=== PATIENT | male | born 1970 | race Caucasian/White ===

== ENCOUNTER 2019-08-24 17:21 | Outpatient (CLI) | payer SELFPAY ==
[2019-08-24 18:38] LABS: Alanine Aminotransferase 99 U/L (0-41); Albumin Level 4.9 g/dL (3.5-5.2); Alkaline Phosphatase 94 IU/L (40-130); Anion Gap 18.3 (5-19); Aspartate Amino Transferase 49 U/L (0-40); Blood Urea Nitrogen 13 mg/dL (6-20); Calcium 10.2 mg/dL (8.5-10.5); Carbon Dioxide 23 mmol/L (22-29); Chloride 104 mmol/L (98-107); Chol HDL Ratio 4.95 mg/dL (1.0-5.00); Cholesterol 183 mg/dL (0-200); Globulin 2.3 g/dL (1.3-4.6); Glomerular Filtration Rate 71.4 mL/min (90-130); Glucose 73 mg/dL (65-115); HDL Cholesterol 37 mg/dL (60-100); LDL Cholesterol Calculated 128 mg/dL (50-129); LDL HDL Ratio 3.46 RATIO (0.00-3.22); Osmolality Calculated 287 mOsm/kg (285-295); Potassium 4.3 mmol/L (3.5-5.1); Sodium 141 mmol/L (136-145); Total Bilirubin 1.2 mg/dL (0.15-1.2); Total Protein 7.2 g/dL (6.6-8.7); Triglycerides 89 mg/dL (0-150)
== END 2019-08-24 17:22 | disposition home or self-care (01) ==
LOC: LAB 17:22
PROVIDERS: Visit Provider General Practice
DX: E78.5 Hyperlipidemia, unspecified (principal)
CPT/HCPCS: 80053; 80061

== ENCOUNTER 2019-09-12 17:34 | Emergency (ER) | payer SELFPAY ==
[2019-09-12 17:44] VITALS: BP 128/81; PULSE 84; RESP 14; TEMP 37.2; O2SAT 97; BMI 27.8
--- NOTE | 2019-09-12 19:32 | W.ED.HEATRA ---
HPI - Head Injury General: Chief complaint: Head Injury Stated complaint: head injury Time Seen by Provider: 09/12/19 19:24 Source: patient Mode of arrival: ambulatory Limitations: no limitations History of Present Illness: HPI Narrative: 49-year-old male states he was using a pry bar to try to pry stump out and it slipped and struck him on the crown of the head. He has a 2 cm laceration to the head. He denies any loss of consciousness and has a very mild headache. He states his headache is a 2 out of 10. He denies any neck pain. He has had no nausea or vomiting. His tetanus has been within the last 5 years. MD Complaint: head injury Onset (ago): hour(s) Associated symptoms: Deny nausea, neck pain or vomiting Review of Systems Const: Denies: fever(s), chills, body aches or change in appetite Eyes: Denies: blurry vision or eye discomfort ENMT: Denies: throat pain or dental pain Card: Denies: chest pain Resp: Denies: dyspnea GI: Denies: abdominal pain, nausea, vomiting or diarrhea : Denies: dysuria Musc: Denies: neck pain or back pain Skin/Breast: Denies: rash Neuro: Denies: headache(s) Psych: Denies: depression Octavio/Lymph: Denies: easy bruising All/Imm: Denies: urticaria Physical Exam Const: COMMON NORMALS: no acute distress, patient oriented x3 and healthy appearing HENMT: COMMON NORMALS: normocephalic HEAD & SCALP: normocephalic OTHER: 2 cm laceration to scalp and head Eye: COMMON NORMALS: Equal, round and reactive pupils present and EOMs intact bilaterally PUPIL: Yes Equal, round and reactive pupils present Neck/C-Spine: COMMON NORMALS: full ROM and supple Chest: COMMONS NORMALS: normal inspection of the chest and normal palpation of entire chest wall Resp: COMMON NORMALS: normal respiratory effort, No retractions, No use of accessory muscles and clear to auscultation bilaterally AUSCULTATION: clear to auscultation bilaterally Cardio: COMMON NORMALS: regular rate, regular rhythm and No murmurs present (Cardio) RATE: regular rate RHYTHM: regular rhythm GI: COMMON NORMALS: Normal to inspection, nondistended, normoactive bowel sounds present, Soft to palpation, non-tender and no masses PALPATION: Yes Soft to palpation Extremity: COMMON NORMALS: normal to inspection and full ROM Neuro: COMMON NORMALS: patient oriented x3, moves all extremities and no focal motor deficits Psych: COMMON NORMALS: mental status grossly normal, Normal thought process present and cooperative THOUGHT PROCESS: Normal thought process present Skin: COMMON NORMALS: no rashes or lesions noted and no wounds GENERAL SKIN EXAM: no rashes or lesions noted Procedures Laceration Laceration 1: Site: scalp Size (cm): 2 Description: linear Depth: simple, single layer Local Anesthetic: lidocaine 1% Amount of anesthesia used (mL): 6 Pre-repair: wound explored and irrigated extensively Skin layer closed with: other (3 jagruti) Course Vital Signs: Vital signs: Vital Signs Temperature 99.0 F 09/12/19 17:44 Pulse Rate 84 09/12/19 17:44 Respiratory Rate 14 09/12/19 17:44 Blood Pressure 128/81 09/12/19 17:44 Pulse Oximetry 97 09/12/19 17:44 MDM - Head Injury MDM Narrative: Medical decision making narrative: Patient presents with a head laceration that was repaired here with jagruti. He has no signs of major injury and does not require CT head. Patient given strict return instructions and he is to follow-up with PCP or here in 7 days for staple removal. Discharge Plan Discharge Patient Disposition: Home, Self-Care Clinical Impression: Laceration of head Qualifiers: Encounter type: initial encounter Location of open wound of head: scalp Foreign body presence: without foreign body Qualified Code(s): S01.01XA - Laceration without foreign body of scalp, initial encounter Condition: Stable Prescriptions: No Action simvastatin 20 mg Tablet 20 mg PO DAILY RF: 0 ProAir HFA 90 mcg/actuation Hfa Aerosol Inhaler 2 puff INHALATION Q6H PRN (Reason: Shortness Of Breath) RF: 0 naproxen 500 mg Tablet 500 mg PO BID PRN (Reason: Pain) RF: 0 Symbicort 80-4.5 mcg/actuation Hfa Aerosol Inhaler 2 puff INHALATION BID RF: 0 Discharge Orders: Discharge Order (Routine); Ordered 09/12/19 Ordered By: Jeanine Garsia Discharge Diet: Advance as tolerated Discharge Activity: Resume usual activity Patient Instructions: Scalp Laceration, Laceration (ED) Activity Restrictions/Additional Instructions: staple removal in 7 days Coding Level of Care Code ED Crm Marketing Executive for Jake Kenny
[2019-09-12 19:36] VITALS: BP 149/100; PULSE 74; RESP 16; O2SAT 100
--- NOTE | 2019-09-19 13:00 | PC.NURSE ---
HERE FOR STAPLE REMOVAL LAC TOP OF HEAD WELL HEALED NO SIGNS OF INFECTION 3 RAINE INTACT PER KIET LILLY MAY GO AHEAD AND TAKE RAINE OUT. RAINE X 3 REMOVED PT IRA WELL
== END 2019-09-12 19:37 | disposition home or self-care (01) ==
PROVIDERS: Emergency Provider Emergency Medicine
DX: S01.01XA Laceration without foreign body of scalp, initial encounter (principal); W20.8XXA Other cause of strike by thrown, projected or falling object, initial encounter
CPT/HCPCS: 12001; 12345; 99281

== ENCOUNTER 2020-01-16 13:02 | Emergency (ER) | payer SELFPAY ==
[2020-01-16 13:13] VITALS: BP 135/98; PULSE 93; RESP 18; TEMP 36.6; O2SAT 97
--- NOTE | 2020-01-16 13:15 | XR_ITS ---
WS: [id number] Portable AP upright chest, 01/16/2020 Clinical Data: cp Comparison: PA and lateral chest, 01/04/2014. Findings: No nodules, masses or effusions are seen. The heart is normal. The pulmonary vascularity is not increased. No pneumonia or pneumothorax is seen. XR/XR chest 1V portable [id number] Impression: Negative chest.
--- NOTE | 2020-01-16 13:15 | ECG_ITS ---
[facility] Test Date: 2020-01-16 Pat Name: Fran Caal Department: Room: Gender: Male Director Drug: : 1970 Requested By: Jeanine Garsia Order Number: [id number] Reid MD: En Ch M.D. Measurements Intervals [place] Rate: 92 P: 38 VT: 148 QRS: 50 QRSD: 92 T: 39 QT: 328 QTc: 406 Interpretive Statements SINUS RHYTHM No previous ECG available for comparison Electronically Signed On 01-16-2020 20:19:09 ASSEMBLY TECHNICIAN by En Ch M.D. [id number]
[2020-01-16 13:20] VITALS: BMI 29.0
[2020-01-16 14:00] LABS: Basophils # 0.1 10^3/uL (0.0-0.1); Basophils % 0.8 %; Eosinophils # 0.2 10^3/uL (0.0-0.8); Eosinophils % 2.2 %; Hematocrit 49.7 % (42.0-52.0); Hemoglobin 16.9 g/dL (11.7-16.6); Lymphocytes # 2.1 10^3/uL (0.8-4.8); Lymphocytes % 23.7 %; Mean Corpuscular Volume 88.1 fL (80-94); Mean Platelet Volume 9.8 fL (7.4-10.4); Monocytes # 0.8 10^3/uL (0.2-0.9); Monocytes % 8.5 %; Neutrophils # 5.68 10^3/uL (1.8-7.7); Neutrophils % 64.2 %; Nucleated Red Blood Cells % 0 %; Platelet Count 280 10^3/cmm (130-400); Red Blood Count 5.64 10^6/uL (4.1-5.3); Red Cell Distribution Width 12.4 % (12.1-15.1); White Blood Count 8.8 10^3/uL (4.0-10.0)
[2020-01-16 14:56] LABS: Troponin(5th) Baseline 6 ng/L (0-15)
[2020-01-16 14:58] LABS: Alanine Aminotransferase 83 U/L (0-41); Albumin Level 4.4 g/dL (3.5-5.2); Alkaline Phosphatase 99 IU/L (40-130); Aspartate Amino Transferase 33 U/L (0-40); Blood Urea Nitrogen 11 mg/dL (6-20); Calcium 9.7 mg/dL (8.5-10.5); Carbon Dioxide 27 mmol/L (22-29); Chloride 101 mmol/L (98-107); Globulin 2.5 g/dL (1.3-4.6); Glomerular Filtration Rate 71.4 mL/min (90-130); Glucose 98 mg/dL (65-115); Osmolality Calculated 283 mOsm/kg (285-295); Sodium 137 mmol/L (136-145); Total Protein 6.9 g/dL (6.6-8.7)
[2020-01-16 14:59] LABS: Anion Gap 13.3 (5-19); Potassium 4.3 mmol/L (3.5-5.1)
--- NOTE | 2020-01-16 15:15 | ECG_ITS ---
[facility] Test Date: 2020-01-16 Pat Name: Fran Caal Department: Room: Gender: Male Property Man: : 1970 Requested By: Jeanine Garsia Order Number: [id number] Reid MD: En Ch M.D. Measurements Intervals [place] Rate: 81 P: 139 SD: 155 QRS: 131 QRSD: 87 T: 136 QT: 356 QTc: 415 Interpretive Statements SINUS RHYTHM ARM LEADS REVERSED [INVERTED P AND QRS IN I] Compared to ECG 01/16/2020 13:17:38 No significant changes Electronically Signed On 01-16-2020 20:24:22 WHITE WASHER PILER by En Ch M.D. [email or web address] [email or web address] health [facility] hospital northM [id number]
--- NOTE | 2020-01-16 15:40 | ED_ITS ---
HPI - Chest Pain General: Chief Complaint: Chest Pain Stated Complaint: chest feeling like palpitations/ chest pressure Time Seen by Provider: 01/16/20 15:27 History of Present Illness: HPI narrative: 49-year-old male presents emergency room with complaints of chest pain off and on for the last 4 months. He is concerned that he may have pneumonia again he has a history of asthma. He has an occasional nonproductive cough. Chest pain is somewhat reproducible with heavy lifting and. He notes that when he uses power tools he gets worse he gets a vibratory sensation in his chest. This has been going on for several months now. No accompanying dyspnea or diaphoresis. MD complaint: chest discomfort Timing of current episode: episodic Pain location: left chest Pain radiation: none Severity: mild Quality: aching and heaviness Relieving factors: nothing Exacerbating factors: other (Use of power tools) Associated symptoms: Deny abdominal pain, diaphoresis, dyspnea, fever(s), leg edema, nausea, palpitations, sense of impending doom, syncope or vomiting Treatment prior to arrival: none Review of Systems Const: Denies: fever(s) or diaphoresis ENMT: Denies: throat pain, ear or mastoid pain, nasal discharge or nasal congestion Card: Denies: palpitations or syncope Resp: Denies: dyspnea GI: Denies: abdominal pain, nausea or vomiting : Denies: flank pain, dysuria, urinary frequency or urinary urgency Skin/Breast: Denies: rash or pruritus Physical Exam Const: COMMON NORMALS: no acute distress GENERAL APPEARANCE: cooperative and comfortable ORIENTATION/CONSCIOUSNESS: Yes awake, Yes oriented to person, Yes oriented to place and Yes oriented to time HENMT: COMMON NORMALS: normocephalic, atraumatic and hearing grossly normal bilaterally HEAD & SCALP: normocephalic and atraumatic Eye: COMMON NORMALS: Equal, round and reactive pupils present, EOMs intact bilaterally, conjunctivae normal and no scleral icterus CONJUNCTIVA: Yes conjunctivae normal PUPIL: Yes Equal, round and reactive pupils present Neck/C-Spine: COMMON NORMALS: full ROM, no lymphadenopathy, supple and no JVD Resp: COMMON NORMALS: normal respiratory effort, No retractions, No use of accessory muscles and clear to auscultation bilaterally AUSCULTATION: clear to auscultation bilaterally Cardio: COMMON NORMALS: no JVD, regular rate, regular rhythm and No murmurs present (Cardio) RATE: regular rate RHYTHM: regular rhythm GI: COMMON NORMALS: Soft to palpation and No hepatosplenomegaly present AUSCULTATION: Yes normoactive bowel sounds PALPATION: Yes Soft to palpation, No Tenderness to palpation present (GI), No Guarding due to palpation present (GI) and Yes No hepatosplenomegaly present Extremity: COMMON NORMALS: normal to inspection, capillary refill normal, no clubbing, cyanosis or edema, no calf tenderness and no pedal edema Neuro: SENSORIUM/ORIENTATION: Yes oriented to person, Yes oriented to place and Yes oriented to time Skin: COMMON NORMALS: no rashes or lesions noted GENERAL SKIN EXAM: no rashes or lesions noted Course Vital Signs: Vital signs: Vital Signs Temperature 97.9 F 01/16/20 13:13 Pulse Rate 78 01/16/20 16:23 Respiratory Rate 14 01/16/20 16:23 Blood Pressure 140/75 01/16/20 16:23 Pulse Oximetry 99 01/16/20 16:23 MDM - Chest Pain Lab Data: Labs: Lab Results 01/16/20 01/16/20 01/16/20 Range/Units 13:40 13:40 13:40 WBC 8.8 (4.0-10.0) 10^3/ uL RBC 5.64 H (4.1-5.3) 10^6/u L Hgb 16.9 H (11.7-16.6) g/dL Hct 49.7 (42.0-52.0) % MCV 88.1 (80-94) fL MCH 30.0 (28.0-34.0) pg MCHC 34.0 (30.0-36.0) g/dL RDW 12.4 (12.1-15.1) % Plt Count 280 (130-400) 10^3/c mm MPV 9.8 (7.4-10.4) fL Neut % (Auto) 64.2 % Lymph % (Auto) 23.7 % [place] % (Auto) 8.5 % Eos % (Auto) 2.2 % Baso % (Auto) 0.8 % Neut # (Auto) 5.68 (1.8-7.7) 10^3/u L Lymph # (Auto) 2.1 (0.8-4.8) 10^3/u L [place] # (Auto) 0.8 (0.2-0.9) 10^3/u L Eos # (Auto) 0.2 (0.0-0.8) 10^3/u L Baso # (Auto) 0.1 (0.0-0.1) 10^3/u L Nucleated RBC % (a uto) 0 % Nucleated RBCs # 0.0 /100WBC Sodium 137 (136-145) mmol/L Potassium 4.3 (3.5-5.1) mmol/L Chloride 101 (98-107) mmol/L Carbon Dioxide 27 (22-29) mmol/L Anion Gap 13.3 (5-19) BUN 11 (6-20) mg/dL Creatinine 1.1 (0.7-1.2) mg/dL GFR Calculation 71.4 L (90-130) mL/min Glucose 98 (65-115) mg/dL Calculated Osmolal ity 283 L (285-295) mOsm/k g Calcium 9.7 (8.5-10.5) mg/dL Total Bilirubin 1.0 (0.15-1.2) mg/dL AST 33 (0-40) U/L ALT 83 H (0-41) U/L Alkaline Phosphata se 99 (40-130) IU/L Troponin T Baselin e 6 (0-15) ng/L Troponin T 120 Min [place] (0-15) ng/L Delta Troponin T (0-10) ABS# Total Protein 6.9 (6.6-8.7) g/dL Albumin 4.4 (3.5-5.2) g/dL Globulin 2.5 (1.3-4.6) g/dL 01/16/20 Range/Units 15:45 WBC (4.0-10.0) 10^3/ uL RBC (4.1-5.3) 10^6/u L Hgb (11.7-16.6) g/dL Hct (42.0-52.0) % MCV (80-94) fL MCH (28.0-34.0) pg MCHC (30.0-36.0) g/dL RDW (12.1-15.1) % Plt Count (130-400) 10^3/c mm MPV (7.4-10.4) fL Neut % (Auto) % Lymph % (Auto) % [place] % (Auto) % Eos % (Auto) % Baso % (Auto) % Neut # (Auto) (1.8-7.7) 10^3/u L Lymph # (Auto) (0.8-4.8) 10^3/u L [place] # (Auto) (0.2-0.9) 10^3/u L Eos # (Auto) (0.0-0.8) 10^3/u L Baso # (Auto) (0.0-0.1) 10^3/u L Nucleated RBC % (a uto) % Nucleated RBCs # /100WBC Sodium (136-145) mmol/L Potassium (3.5-5.1) mmol/L Chloride (98-107) mmol/L Carbon Dioxide (22-29) mmol/L Anion Gap (5-19) BUN (6-20) mg/dL Creatinine (0.7-1.2) mg/dL GFR Calculation (90-130) mL/min Glucose (65-115) mg/dL Calculated Osmolal ity (285-295) mOsm/k g Calcium (8.5-10.5) mg/dL Total Bilirubin (0.15-1.2) mg/dL AST (0-40) U/L ALT (0-41) U/L Alkaline Phosphata se (40-130) IU/L Troponin T Baselin e (0-15) ng/L Troponin T 120 Min [place] 6.00 (0-15) ng/L Delta Troponin T 0 (0-10) ABS# Total Protein (6.6-8.7) g/dL Albumin (3.5-5.2) g/dL Globulin (1.3-4.6) g/dL Discharge Plan Discharge Patient Disposition: Home Clinical Impression: Atypical chest pain Condition: Stable Prescriptions: New aspirin 81 mg tablet,chewable 81 mg PO DAILY Qty: 30 RF: 0 No Action simvastatin 20 mg Tablet 20 mg PO DAILY RF: 0 albuterol sulfate [ProAir HFA] 90 mcg/actuation Hfa Aerosol Inhaler 2 puff INHALATION Q4H PRN (Reason: Shortness Of Breath) RF: 0 naproxen 500 mg Tablet 500 mg PO BID PRN (Reason: Pain) RF: 0 budesonide-formoterol [Symbicort] 80-4.5 mcg/actuation Hfa Aerosol Inhaler 2 puff INHALATION BID RF: 0 cetirizine 10 mg Tablet 10 mg PO DAILY RF: 0 guaifenesin 400 mg Tablet 600 mg PO BID PRN (Reason: unknown) RF: 0 Saline [place] 1 spray nasal DAILY PRN (Reason: unknown) RF: 0 Discharge Orders: Discharge Order (Routine); Ordered 01/16/20 Ordered By: Rene Myrick Discharge Diet: Usual diet Discharge Activity: Increase activity as tolerated Activity Restrictions/Additional Instructions: Case management will call to arrange for a graded exercise stress test Discharge Date/Time: 01/16/20 16:24 Coding Level of Care Code ED Transaction Processor for Jake Kenny
[2020-01-16 16:14] LABS: Troponin 5 2HR Delta 0 ABS# (0-10)
[2020-01-16 16:23] VITALS: BP 140/75; PULSE 78; RESP 14; O2SAT 99
--- NOTE | 2020-01-17 11:32 | DCPLANNER ---
senior project manager engineering had message to schedule an out patient stress test for patient. senior project manager engineering called patient to confirm that patient still wanted to have the stress test ordered and to confirm who patient sees for primary care. senior project manager engineering spoke with patient, he stated that he goes the [facility], and that he does not want to have the test ordered at this time. senior project manager engineering will mail patient both of the financial institution manager applications to fill out and turn in.
== END 2020-01-16 16:24 | disposition home or self-care (01) ==
PROVIDERS: Emergency Medicine; Emergency Provider Family Medicine
DX: R07.89 Other chest pain (principal)
CPT/HCPCS: 12345; 71045; 80053; 84484; 85025; 93005; 99283

== ENCOUNTER 2020-11-07 18:50 | Outpatient (REF) | payer SELFPAY ==
[2020-11-07 20:06] LABS: Alanine Aminotransferase 74 U/L (0-41); Albumin Level 4.6 g/dL (3.5-5.2); Alkaline Phosphatase 111 IU/L (40-130); Aspartate Amino Transferase 38 U/L (0-40); Blood Urea Nitrogen 8 mg/dL (6-20); Calcium 9.5 mg/dL (8.5-10.5); Carbon Dioxide 24 mmol/L (22-29); Chloride 104 mmol/L (98-107); Globulin 3.2 g/dL (1.3-4.6); Glomerular Filtration Rate 79.4 mL/min (90-130); Glucose 100 mg/dL (65-115); Osmolality Calculated 288 mOsm/kg (285-295); Sodium 140 mmol/L (136-145); Total Bilirubin 1.3 mg/dL (0.15-1.2); Total Protein 7.8 g/dL (6.6-8.7)
== END 2020-11-07 18:51 | disposition home or self-care (01) ==
LOC: LAB 18:50
PROVIDERS: PCP General Practice; Visit Provider General Practice
DX: Z01.89 Encounter for other specified special examinations (principal)
CPT/HCPCS: 80053

== ENCOUNTER 2021-05-06 09:47 | Outpatient (CLI) | payer BC, MEDICAID, SELFPAY ==
--- NOTE | 2021-05-06 09:54 | US_ITS ---
WS: [id number] RIGHT UPPER QUADRANT ULTRASOUND HISTORY: UNSPECIFIED JAUNDICE/SERUM TOTAL BILIRUBIN ELEVATED COMPARISON: CT 10/08/2012. Entire liver is difficult to visualize. Liver: 14.7 cm in length. Liver is normal size. There is a hypoechoic nodule towards the diaphragmati c surface measuring 1.7 x 1.7 x 1.9 cm. May have been present on the prior CT from 2012 but increased slightly in size. This is of low echogenicity may be a cyst or complex cyst. There is an additional hypoechoic area in the central liver measuring 1.8 x 2.0 x 1.8 cm was not definitely identified on a prior exam. No bile duct dilatation. Coarse echotexture throughout the liver. Portal Vein: Normal hepatopetal flow with monophasic waveform. Gallbladder: Normally distended gallbladder. Small stone adherent to the wall or a polyp within the g allbladder measuring about 10 mm. This does not move. No wall thickening. No pericholecystic fluid. CBD: 0.4 cm Pancreas: Poorly visualized. Head and tail are not seen. Right kidney: 9.2 cm in length. Normal size and echogenicity. No hydronephrosis or mass. Aorta and IVC: Unremarkable abdominal aorta and IVC. No ascites. US/US abdomen limited [id number] IMPRESSION: 1. Technically difficult and limited evaluation of the RIGHT upper quadrant. 2. There are 2 areas of decreased echogenicity within the liver which need fur ther evaluation. One of these areas may have been present in 2013 but increased in size. Recommend follow-up abdomen and pelvis CT with IV and oral contrast t o evaluate for additional lesions in the liver and characterize the 2 lesions a re identified. 3. No bile duct dilatation. 4. Poor visualization of the pancreas. 5. Small gallbladder polyp versus stone.
== END 2021-05-06 09:48 | disposition home or self-care (01) ==
LOC: RAD 09:52
PROVIDERS: PCP Nurse Practitioner Family; Visit Provider Nurse Practitioner Family
DX: R17 Unspecified jaundice (principal)
CPT/HCPCS: 76705

== ENCOUNTER 2021-05-29 13:55 | Outpatient (CLI) | payer BC, MEDICAID, SELFPAY ==
--- NOTE | 2021-05-29 14:00 | CTR_ITS ---
PROCEDURE INFORMATION: Exam: CT Abdomen With Contrast Exam date and time: 05/29/2021 3:12 PM Age: 51 years old Clinical indication: Abnormal findings; Abnormal radiologic finding of the abdomen; Radiologic exam and body structure: Abdominal US; Patient HX: Jaundice; Per PT spots on his liver; Additional info: Abnormal US TECHNIQUE: Imaging protocol: Computed tomography images of the abdomen with intravenous contrast. Radiation optimization: All CT scans at this facility use at least one of these dose optimization techniques: automated exposure control; mA and/or kV adjustment per patient size (includes targeted exams where dose is matched to clinical indication); or iterative reconstruction. Contrast material: OMNI 300; Contrast volume: 95 ml; Contrast route: INTRAVENOUS (IV); COMPARISON: US abdomen limited [id number] 05/06/2021 10:09 AM RADIATION DOSE METRICS: Total DLP (mGy-cm): 739.86 FINDINGS: Lungs: Left lower lobe atelectasis. Left lower lobe atelectasis. Liver: Hepatic steatosis suspected. Right hepatic lobe 16 mm probable cyst seen near the dome corresponding to 1 of the lesions seen on recent ultrasound. Additional hypoechoic area in the central liver as seen on recent ultrasound is not seen on this exam suggesting it may reflect an area of focal fatty sparing. Hepatic steatosis suspected. Gallbladder and bile ducts: Cholelithiasis suspected. Cholelithiasis suspected. Pancreas: Normal. No ductal dilation. Spleen: Normal. No splenomegaly. Adrenals: Normal. No mass. Kidneys and ureters: Right kidney cyst, negative for follow-up advised. Right kidney cyst, negative for follow-up advised. Stomach and bowel: Visualized stomach and bowel are unremarkable. No obstruction. No mucosal thickening. Intraperitoneal space: Unremarkable. No free air. No significant fluid collection. Lymph nodes: Unremarkable. No enlarged lymph nodes. Vasculature: Unremarkable. No abdominal aortic aneurysm. Bones/joints: Unremarkable. No acute fracture. No dislocation. Soft tissues: Unremarkable. CT/CT abdomen w con* [id number] IMPRESSION: 1. Left lower lobe atelectasis. 2. Hepatic steatosis suspected. 3. Right kidney cyst, negative for follow-up advised. 4. Cholelithiasis suspected. 5. Right hepatic lobe 16 mm probable cyst seen near the dome corresponding to 1 of the lesions seen on recent ultrasound. 6. Additional hypoechoic area in the central liver as seen on recent ultrasound is not seen on this exam suggesting it may reflect an area of focal fatty sparing. 7. Left lower lobe atelectasis. 8. Hepatic steatosis suspected. 9. Right kidney cyst, negative for follow-up advised. 10. Cholelithiasis suspected.
[2021-05-29] MEDS: iohexol 300 mg/mL 50 mL Btl PO (14:15)
[2021-05-29] MEDS: iohexol 300 mg/mL 100 mL Btl IV (15:15)
== END 2021-05-29 13:56 | disposition home or self-care (01) ==
PROVIDERS: PCP Nurse Practitioner Family; Visit Provider Nurse Practitioner Family
DX: J98.11 Atelectasis (principal); K76.0 Fatty (change of) liver, not elsewhere classified
CPT/HCPCS: 74160

== ENCOUNTER 2022-02-04 15:14 | Outpatient (CLI) | payer BC, MEDICAID, SELFPAY ==
--- NOTE | 2022-02-04 15:26 | XRR_ITS ---
PROCEDURE INFORMATION: Exam: XR Chest Exam date and time: 02/04/2022 3:26 PM Age: 52 years old Clinical indication: Cough TECHNIQUE: Imaging protocol: Radiologic exam of the chest. Views: 2 views. COMPARISON: CR XR chest 1V portable [id number] 01/16/2020 1:31 PM FINDINGS: Lungs: Unremarkable. No consolidation. Pleural spaces: Unremarkable. No pleural effusion. No pneumothorax. Heart/Mediastinum: Unremarkable. No cardiomegaly. Bones/joints: Unremarkable. XR/XR chest 2V* [id number] IMPRESSION: No acute findings.
== END 2022-02-04 15:15 | disposition home or self-care (01) ==
PROVIDERS: PCP Nurse Practitioner Family; Visit Provider Nurse Practitioner Family
DX: R05.9 Cough, unspecified (principal)
CPT/HCPCS: 71046

== ENCOUNTER 2022-09-23 12:03 | Outpatient (CLI) | payer BC, MEDICAID, SELFPAY ==
--- NOTE | 2022-09-23 12:20 | XRR_ITS ---
PROCEDURE INFORMATION: Exam: XR Cervical Spine Exam date and time: 09/23/2022 12:38 PM Age: 52 years old Clinical indication: Pain; Cervicalgia; Additional info: Cervicalgia/tension-type headache TECHNIQUE: Imaging protocol: Radiologic exam of the cervical spine. Views: 6 or more views. COMPARISON: CR XR chest 2V* [id number] 02/04/2022 3:26 PM FINDINGS: Bones/joints: Spinal alignment is normal. Vertebral body height is maintained. Cervical spine is visible through C6 on the lateral view. No spondylolisthesis on the neutral view. There is there is 2 mm anterolisthesis of C4 on C5 in flexion. This resolves with extension. Visible facet joints are unremarkable. No visible neural foraminal stenosis. No visible fracture. Soft tissues: Visible soft tissues are unremarkable. XR/XR cervical spine min 6V [id number] IMPRESSION: 2 mm anterolisthesis of C4 on C5 in flexion, resolves with extension.
== END 2022-09-23 12:04 | disposition home or self-care (01) ==
PROVIDERS: PCP Nurse Practitioner Family; Visit Provider Nurse Practitioner Family
DX: M54.2 Cervicalgia (principal); G44.209 Tension-type headache, unspecified, not intractable; R93.7 Abnormal findings on diagnostic imaging of other parts of musculoskeletal system
CPT/HCPCS: 72052

== ENCOUNTER 2022-11-12 13:09 | Outpatient (CLI) | payer BC, MEDICAID, SELFPAY ==
--- NOTE | 2022-11-12 13:21 | CT_ITS ---
WS: [id number] CT ABDOMEN WITH CONTRAST HISTORY: ELEVATED FT'S/UPPER ABD PAIN Contiguous single phase 5 mm axial imaging performed to the abdomen. Oral contrast has not been provi ded. Coronal and sagittal reformats are submitted. All CT scans at [facility] use at least on e of these dose optimization techniques: automated exposure control; mA and/or kV adjustment per triston ent size (includes targeted exams where dose is matched to clinical indication); or iterative reconst ruction. IV CONTRAST: Omnipaque 350; 100 mL IV. Oral contrast: No DLP: 401.30 mGy.cm COMPARISON: 05/29/2021 Lower thorax: Micronodule periphery RIGHT lower lobe. Heart is normal size. No hiatal hernia. Liver/biliary system: Normal size liver. Low-attenuation well-circumscribed mass toward the diaphragm atic surface measures 2.2 x 2.3 cm. Hounsfield units are low. This mass was identified on the prior s tudy from 05/29/2021 with mild increase in size. Most consistent with a mildly complex cyst. No additi onal masses. Normal portal vein. Gallbladder: Normal. No gallstones or wall thickening. No pericholec ystic fluid. Pancreas: Normal size pancreas and pancreatic duct. No adjacent inflammation. Spleen: Normal size spleen. No mass or infarct. Adrenal glands: Normal. Right kidney: No renal obstruction. Cortical cyst from the posterior lower pole measures 1.5 cm. No s olid mass. Left kidney: Mild atrophy LEFT kidney with cortical thinning and scarring. No mass or obstruction. No interval change. Aorta: Mild atherosclerosis aorta. Lymphadenopathy: None. Free fluid: None. GI tract: As visualized within the abdomen, normal. There is mild constipation. Abdominal wall: Unremarkable abdominal wall. No hernia. Visualized osseous structures: Unremarkable. IMPRESSION: 1. No acute abdominal process identified. 2. Mild increase in size of the hepatic cyst toward the diaphragmatic surface now measuring 2.2 x 2. 3 cm. 3. No bile duct dilatation. Negative gallbladder. 4. Mild atrophy and cortical thinning LEFT kidney. 5. RIGHT renal cyst.
[2022-11-12] MEDS: iohexol 350 mg/mL 500 mL Btl (per mL) IV (13:38)
== END 2022-11-12 13:10 | disposition home or self-care (01) ==
PROVIDERS: PCP Nurse Practitioner Family; Visit Provider Nurse Practitioner Family
DX: R79.89 Other specified abnormal findings of blood chemistry (principal); R10.10 Upper abdominal pain, unspecified; K80.20 Calculus of gallbladder without cholecystitis without obstruction; K76.0 Fatty (change of) liver, not elsewhere classified; K76.89 Other specified diseases of liver; N28.1 Cyst of kidney, acquired
CPT/HCPCS: 74160; Q9967

== ENCOUNTER 2022-12-09 12:49 | Outpatient (CLI) | payer BC, MEDICAID, SELFPAY ==
--- NOTE | 2022-12-09 12:56 | XR_ITS ---
WS: [id number] Left foot, 3 views, 12/09/2022 Clinical Data: PAIN OF LEFT GREAT TOE Comparison: None. Findings: No fractures or dislocations are seen. No bone destruction or erosion is noted. There is minimal soft tissue swelling over the head of the left first metatarsal with mild cystic change. There is also a small cyst at the medial aspect of the base of the left first proximal phalanx. There is an Achilles spur. 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
== END 2022-12-09 12:50 | disposition home or self-care (01) ==
PROVIDERS: PCP Nurse Practitioner Family; Visit Provider Nurse Practitioner Family
DX: M19.072 Primary osteoarthritis, left ankle and foot (principal)
CPT/HCPCS: 73630

== ENCOUNTER 2022-12-25 05:24 | Day surgery (SDC) | payer BC, MEDICAID, SELFPAY ==
[2022-12-25 06:13] VITALS: BP 146/116; PULSE 94; RESP 20; TEMP 36.4; O2SAT 96
[2022-12-25] MEDS: sodium chloride 0.9% 1,000 ML 30 ML IV (06:34)
--- NOTE | 2022-12-25 06:56 | P.HP_ITS ---
Providers/Chief Complaint Primary Care Provider: JOSETTE Newton Chief Complaint: Z12.11 History of Present Illness Fran Caal is a 52 year old male Review of Systems General: Reports: 10 or more systems reviewed and unremarkable except in HPI and below Medications/Allergies Home Medications Medication Instructions Recorded Confirmed Last Taken Type albuterol sulfate 90 mcg/actuation 2 puff inhalation Q4H PRN 09/12/19 12/25/22 12/25/22 History aerosol inhaler (ProAir HFA) Shortness Of Breath budesonide-formoterol HFA 80 2 puff inhalation BID 09/12/19 12/25/22 12/25/22 History mcg-4.5 mcg/actuation aerosol inhaler (Symbicort) cetirizine 10 mg tablet 10 mg PO DAILY 09/19/19 12/23/22 12/23/22 History Saline [place] 1 spray nasal DAILY PRN unknown 01/16/20 12/25/22 12/25/22 History aspirin 81 mg chewable tablet 81 mg PO DAILY #30 tabs 01/16/20 12/23/22 12/23/22 Rx carboxymethylcellulose sodium 1 % 1 drp ophthalmic (eye) BID 04/28/22 12/25/22 12/24/22 History eye gel in a dropperette (Refresh Celluvisc) fluticasone propionate 50 1 spray intranasal DAILY 04/28/22 12/23/22 12/24/22 History mcg/actuation nasal spray,suspension povidone (PF) 0.5 % eye gel in a 2 drp ophthalmic (eye) BID 04/28/22 12/25/22 12/24/22 History dropperette (iVizia (PF)) ropinirole 0.5 mg tablet 1 mg PO BID 04/28/22 12/25/22 12/23/22 History tizanidine 4 mg capsule 4 mg PO TID PRN Muscle Spasm 04/28/22 12/25/22 12/23/22 History omega-3 fatty acids 500 mg capsule 500 mg PO DAILY 11/24/22 12/23/22 12/23/22 History Allergies Allergy/AdvReac Type Severity Reaction Status Date / Time No Known Allergies Allergy Verified 12/23/22 09:24 PFSH Acute PFSH: Medical History Asthma COPD (chronic obstructive pulmonary disease) Emphysema lung Hx of hyperlipidemia Social History Smoking and tobacco/nicotine status: never used tobacco/nicotine Vitals/I&O/Wt Last Vital Signs Temp 97.6 F 12/25/22 06:13 Pulse 94 12/25/22 06:13 Resp 20 H 12/25/22 06:13 BP 146/116 12/25/22 06:13 Pulse Ox 96 12/25/22 06:13 O2 Del Method Room Air 12/25/22 06:13 Weight last 48 hrs Weight 190 lb A&P Assessment and plan (1) Colon cancer screening: Plan Colonoscopy Attestations Medical Necessity Statement*: home Coding Level of Care Code Acute Code for Chg Fwd Diagnoses Colon cancer screening Z12.11
--- NOTE | 2022-12-25 06:58 | ANES.PREANE2 ---
Pre-Anesthetic Assessment Height/Weight: Height 1.75 m Weight 86.183 kg Temp Pulse Resp BP Pulse Ox O2 Del Method 97.6 F 94 20 H 146/116 96 Room Air 12/25/22 06:13 12/25/22 06:13 12/25/22 06:13 12/25/22 06:13 12/25/22 06:13 12/25/22 06:13 Preop Diagnosis: Screening Operation Date: 12/25/22 07:00 Proposed Procedures p Colonoscopy 07107,Z12.11(Not Applicable) - Varghese Fuentes, DO Was Beta Mark taken within 24 hours: N/A Was Clonidine taken within 24 hours: N/A Last intake: Intake Last Liquid Date 12/24/22 Last Liquid Time 23:00 Last Solid Date 12/24/22 Last Solid Time 20:00 Social No alcohol and No tobacco Exam alert, oriented x 3, clear to auscultation bilaterally and regular rate & rhythm Airway Submandibular: within normal limits Cervical ROM: within normal limits Mallampati: Class II Dentition: full History/ROS No significant history except as noted and No significant complaints Pulmonary Asthma CV/HEM None reported None reported Hepatic None reported GI None reported Metabolic None reported Musc/skel None reported Neuropsych None reported Anesthetic Plan ASA status: 2 Anesthesia: Anesthesia Evaluation and MAC Risk of > 500 ml blood loss (7ml/kg in children): No Medications/Allergies Home Medications Medication Instructions Recorded Confirmed Last Taken Type albuterol sulfate 90 mcg/actuation 2 puff inhalation Q4H PRN 09/12/19 12/25/22 12/25/22 History aerosol inhaler (ProAir HFA) Shortness Of Breath budesonide-formoterol HFA 80 2 puff inhalation BID 09/12/19 12/25/22 12/25/22 History mcg-4.5 mcg/actuation aerosol inhaler (Symbicort) cetirizine 10 mg tablet 10 mg PO DAILY 09/19/19 12/23/22 12/23/22 History Saline [place] 1 spray nasal DAILY PRN unknown 01/16/20 12/25/22 12/25/22 History aspirin 81 mg chewable tablet 81 mg PO DAILY #30 tabs 01/16/20 12/23/22 12/23/22 Rx carboxymethylcellulose sodium 1 % 1 drp ophthalmic (eye) BID 04/28/22 12/25/22 12/24/22 History eye gel in a dropperette (Refresh Celluvisc) fluticasone propionate 50 1 spray intranasal DAILY 04/28/22 12/23/22 12/24/22 History mcg/actuation nasal spray,suspension povidone (PF) 0.5 % eye gel in a 2 drp ophthalmic (eye) BID 04/28/22 12/25/22 12/24/22 History dropperette (iVizia (PF)) ropinirole 0.5 mg tablet 1 mg PO BID 04/28/22 12/25/22 12/23/22 History tizanidine 4 mg capsule 4 mg PO TID PRN Muscle Spasm 04/28/22 12/25/22 12/23/22 History omega-3 fatty acids 500 mg capsule 500 mg PO DAILY 11/24/22 12/23/22 12/23/22 History Allergies Allergy/AdvReac Type Severity Reaction Status Date / Time No Known Allergies Allergy Verified 12/23/22 09:24 Current Medications Generic Name Dose Route Start Last Admin Trade Name Freq PRN Reason Stop Dose Admin Sodium Chloride 1,000 mls @ 30 mls/hr 12/25/22 06:00 12/25/22 06:34 Sodium Chloride 0.9% IV 12/26/22 05:59 30 mls/hr .Q24H SAGAR Administration PFSH Anesthesia Medical History Asthma COPD (chronic obstructive pulmonary disease) Emphysema lung Hx of hyperlipidemia Social History Smoking and tobacco/nicotine status: never used tobacco/nicotine Data Anesthesia Cardiac Studies: No Data to Display
[2022-12-25 07:20] VITALS: BP 138/92; PULSE 101; RESP 20; TEMP 36.3; O2SAT 97
[2022-12-25 07:30] VITALS: BP 153/96; PULSE 108; RESP 20; O2SAT 93
[2022-12-25 07:38] VITALS: BP 143/105; PULSE 104; RESP 18; O2SAT 100
--- NOTE | 2022-12-25 13:47 | ANE.PACU2 ---
Inpatient post-anesthesia follow up: Airway intact: Yes Vital signs: Temperature 97.3 F Pulse Rate 104 Respiratory Rate 18 Blood Pressure 143/105 Pulse Oximetry 100 Oxygen Delivery Me thod Room Air Oxygen Flow Rate 4 Fraction of Inspir ed Oxygen Hydration adequate: Yes Nausea and vomiting: No Pain level: 2 Mental status: Baseline
== END 2022-12-25 07:45 | disposition home or self-care (01) ==
PROVIDERS: PCP Nurse Practitioner Family; Visit Provider Surgery
PROC: 0DJD8ZZ Inspection of Lower Intestinal Tract, Via Natural or Artificial Opening Endoscopic (ICD-10-PCS; CPT 45378; principal; 2022-12-25 07:00)
DX: Z12.11 Encounter for screening for malignant neoplasm of colon (principal); Z79.82 Long term (current) use of aspirin; J44.9 Chronic obstructive pulmonary disease, unspecified; E78.5 Hyperlipidemia, unspecified
CPT/HCPCS: 45378; J2704; J7030

== ENCOUNTER 2023-01-26 11:09 | Outpatient (CLI) | payer BC, MEDICAID, SELFPAY ==
[2023-01-26 12:35] LABS: Alanine Aminotransferase 162 U/L (0-41); Albumin Level 4.2 g/dL (3.5-5.2); Alkaline Phosphatase 105 U/L (40-130); Anion Gap 12.1 (5-19); Aspartate Amino Transferase 66 U/L (0-40); Blood Urea Nitrogen 13 mg/dL (6-20); Calcium 9.7 mg/dL (8.5-10.5); Carbon Dioxide 29 mmol/L (22-29); Chloride 103 mmol/L (98-107); Globulin 2.9 g/dL (1.3-4.6); Glomerular Filtration Rate 70.3 mL/min (90-130); Glucose 111 mg/dL (65-115); Osmolality Calculated 291 mOsm/kg (285-295); Potassium 4.1 mmol/L (3.5-5.1); Sodium 140 mmol/L (136-145); Total Bilirubin 0.9 mg/dL (0.15-1.2); Total Protein 7.1 g/dL (6.6-8.7); Uric Acid 6.2 mg/dL (3.4-7.0)
== END 2023-01-26 11:10 | disposition home or self-care (01) ==
PROVIDERS: PCP Nurse Practitioner Family; Visit Provider Podiatrist Foot & Ankle Surgery
DX: M10.9 Gout, unspecified (principal)
CPT/HCPCS: 36415; 80053; 84550

== ENCOUNTER 2023-04-14 14:52 | Outpatient (CLI) | payer BC, MEDICAID, SELFPAY ==
--- NOTE | 2023-04-14 15:00 | MRR_ITS ---
PROCEDURE INFORMATION: Exam: MR Abdomen Without and With Contrast Exam date and time: 04/14/2023 4:09 PM Age: 53 years old Clinical indication: Patient HX: History of a cyst on the liver/no symptoms/follow-up scan per patient; Additional info: Liver cyst/elevated lfts TECHNIQUE: Imaging protocol: Magnetic resonance imaging of the abdomen without and with contrast. COMPARISON: CT abdomen w con* [id number] 11/12/2022 1:33 PM FINDINGS: Liver: No change in the circumscribed simple cyst in the posterosuperior margin of the right liver measuring 2.3 cm diameter. Negative for enhancement. Negative for hepatomegaly. Signal intensity of the liver parenchyma is unremarkable. Gallbladder and bile ducts: Unremarkable. No stones. No ductal dilation. Pancreas: Unremarkable. No ductal dilation. Spleen: Unremarkable. No splenomegaly. Adrenal glands: Unremarkable. No mass. Kidneys and ureters: Chronic atrophic changes of the left renal parenchyma. Small simple posterior lower pole right renal cyst redemonstrated. Negative for enhancement. Negative for hydronephrosis. Stomach and bowel: Visualized stomach and intestines are unremarkable. Intraperitoneal space: No free fluid. Vasculature: No abdominal aortic aneurysm. Hepatic vasculature is patent. Bones/joints: Unremarkable. Soft tissues: Unremarkable. MR/MR abdomen wo/w con* [id number] IMPRESSION: 1. Negative for biliary obstruction. 2. No change in the small simple liver cyst. No dedicated follow-up is recommended for this finding. 3. No change in the small simple right renal cyst. No dedicated follow-up for this finding is recommended.
[2023-04-14] MEDS: gadobenate dimeglumine 20 mL vial IV (16:47)
== END 2023-04-14 14:53 | disposition home or self-care (01) ==
LOC: RAD 14:52
PROVIDERS: PCP Nurse Practitioner Family; Visit Provider Nurse Practitioner
DX: K76.89 Other specified diseases of liver (principal); R79.89 Other specified abnormal findings of blood chemistry
CPT/HCPCS: 74183; A9577

== ENCOUNTER 2024-02-02 13:00 | Emergency (ER) | payer BC, MEDICAID, SELFPAY ==
--- NOTE | 2024-02-02 13:04 | XR_ITS ---
WS: [id number] Exam: XR chest 1V portable [id number] Date/Time of Exam: 02/02/2024 1:11 PM Reason For Exam: cp Comparison 02/04/2022. Lungs are fully inflated and clear. Normal cardiomediastinal silhouette. No pleural effusions. Region al bony elements are intact. XR/XR chest 1V portable [id number] IMPRESSION: 1. No acute finding.
--- NOTE | 2024-02-02 13:07 | ECG_ITS ---
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
[2024-02-02 13:09] VITALS: BP 126/85; PULSE 69; RESP 18; TEMP 36.8; O2SAT 98
[2024-02-02 14:00] LABS: Basophils % 0.6 %; Eosinophils # 0.2 10^3/uL (0.0-0.8); Eosinophils % 2.5 %; Hematocrit 51.5 % (37-53); Lymphocytes # 1.8 10^3/uL (0.8-4.8); Lymphocytes % 25.1 %; Mean Corpuscular HGB Conc 33.8 g/dL (30-55); Mean Corpuscular Hemoglobin 29.6 pg (27-33); Mean Corpuscular Volume 87.7 fl (82-101); Mean Platelet Volume 9.4 fL (7.4-10.4); Monocytes # 0.5 10^3/uL (0.2-0.9); Monocytes % 6.3 %; Neutrophils # 4.69 10^3/uL (1.8-7.7); Neutrophils % 65.1 %; Nucleated Red Blood Cells % 0 %; Platelet Count 295 10^3/cmm (157-399); Red Blood Count 5.87 10^6/uL (3.85-5.65); Red Cell Distribution Width 12.5 % (12.1-15.1)
[2024-02-02 14:18] LABS: Alanine Aminotransferase 116 U/L (0-41); Albumin Level 4.7 g/dL (3.5-5.2); Alkaline Phosphatase 114 U/L (40-130); Anion Gap 16.4 (5-19); Aspartate Amino Transferase 48 U/L (0-40); Blood Urea Nitrogen 15 mg/dL (6-20); Calcium 9.7 mg/dL (8.5-10.5); Carbon Dioxide 25 mmol/L (22-29); Chloride 103 mmol/L (98-107); Creatinine Clr Calc Pharmacy 76.5137; Globulin 2.4 g/dL (1.3-4.6); Glomerular Filtration Rate 63.3 mL/min (90-130); Glucose 89 mg/dL (65-115); Lipase 33 U/L (13-60); Osmolality Calculated 290 mOsm/kg (285-295); Potassium 4.4 mmol/L (3.5-5.1); Sodium 140 mmol/L (136-145); Total Bilirubin 1.2 mg/dL (0.15-1.2); Total Protein 7.1 g/dL (6.6-8.7)
[2024-02-02 14:19] LABS: Troponin(5th) Baseline < 6 ng/L (0-15)
--- NOTE | 2024-02-02 15:29 | ED_ITS ---
HPI - Chest Pain 2 General: Chief Complaint: Chest Pain Stated Complaint: chest tightness, cough Time Seen by Provider: 02/02/24 15:23 Source: patient Mode of arrival: ambulatory Limitations: no limitations History of Present Illness: 54-year-old male states he is having abbie st pain for the last month. He states been a very sharp pain worse when he coughs. States he has a history of COPD and has had a mild cough. He denies any fever he denies any shortness of breath denies any worsening improving factors. Denies any vomiting Associated symptoms: Deny abdominal pain, dyspnea, fever(s), nausea or vomiting Related Data Home Medications Medication Instructions Recorded Confirmed albuterol sulfate 90 mcg/actuation 2 puff inhalation Q4H PRN 09/12/19 04/12/23 aerosol inhaler (ProAir HFA) Shortness Of Breath budesonide-formoterol HFA 80 2 puff inhalation BID 09/12/19 04/12/23 mcg-4.5 mcg/actuation aerosol inhaler (Symbicort) cetirizine 10 mg tablet 10 mg PO DAILY 09/19/19 04/12/23 Saline [place] 1 spray nasal DAILY PRN unknown 01/16/20 04/12/23 carboxymethylcellulose sodium 1 % 1 drp ophthalmic (eye) BID 04/28/22 04/12/23 eye gel in a dropperette (Refresh Celluvisc) fluticasone propionate 50 1 spray intranasal DAILY 04/28/22 04/12/23 mcg/actuation nasal spray,suspension povidone (PF) 0.5 % eye gel in a 2 drp ophthalmic (eye) BID 04/28/22 04/12/23 dropperette (iVizia (PF)) ropinirole 0.5 mg tablet 1 mg PO BID 04/28/22 04/12/23 tizanidine 4 mg capsule 4 mg PO TID PRN Muscle Spasm 04/28/22 04/12/23 omega-3 fatty acids 500 mg capsule 500 mg PO DAILY 11/24/22 04/12/23 meloxicam 15 mg tablet ea PO 01/04/23 04/12/23 famotidine 20 mg tablet mg PO 04/12/23 04/12/23 Previous Rx's Medication Instructions Recorded aspirin 81 mg chewable tablet 81 mg PO DAILY #30 tabs 01/16/20 allopurinol 100 mg tablet 200 mg (2 x 100 mg) PO DAILY #60 04/12/23 tabs Allergies Allergy/AdvReac Type Severity Reaction Status Date / Time No Known Allergies Allergy Verified 04/12/23 10:55 Review of Systems 2 Const: Denies: fever(s), chills, body aches or change in appetite ENMT: Denies: throat pain or dental pain Card: Reports: chest pain Resp: Reports: non-productive cough; Denies: dyspnea GI: Denies: abdominal pain, nausea, vomiting or diarrhea Musc: Denies: neck pain or back pain Skin/Breast: Denies: rash Neuro: Denies: headache(s) PFSH ED 2 PFSH: Medical History Asthma COPD (chronic obstructive pulmonary disease) Emphysema lung Hx of hyperlipidemia Social History Smoking and tobacco/nicotine status: never used tobacco/nicotine Physical Exam 2 Const: COMMON NORMALS: no acute distress, patient oriented x3 and healthy appearing HENMT: COMMON NORMALS: normocephalic and atraumatic HEAD & SCALP: n ormocephalic and atraumatic Eye: COMMON NORMALS: conjunctivae normal CONJUNCTIVA: Yes conjunctivae normal Neck/C-Spine: COMMON NORMALS: full ROM and supple Chest: COMMONS NORMALS: normal inspection of the chest and normal palpation of entire chest wall Resp: COMMON NORMALS: normal respiratory effort, No retractions, No use of accessory muscles and clear to auscultation bilaterally AUSCULTATION: clear to auscultation bilaterally Cardio: COMMON NORMALS: regular rate, regular rhythm and No murmurs present (Cardio) RATE: regular rate RHYTHM: regular rhythm Extremity: COMMON NORMALS: normal to inspection and full ROM Neuro: COMMON NORMALS: patient oriented x3, moves all extremities and no focal motor deficits Psych: COMMON NORMALS: mental status grossly normal, Normal thought process present and cooperative THOUGHT PROCESS: Normal thought process present Skin: COMMON NORMALS: no rashes or lesions noted and no wounds GENERAL SKIN EXAM: no rashes or lesions noted Course 2 Vital Signs: Vital signs: Vital Signs Temperature 98.3 F 02/02/24 13:09 Pulse Rate 69 02/02/24 13:09 Respiratory Rate 18 02/02/24 13:09 Blood Pressure 126/85 02/02/24 13:09 Pulse Oximetry 98 02/02/24 13:09 MDM - Chest Pain Medical Decision Making Patient presents for chest pain is very atypical in nature is likely pleuritic he has no signs of ACS he has no signs of pulmonary embolism or dissection we will give him a dose of Decadron he stable for discharge follow-up with PCP return if worsening. Medical Records I reviewed the patient's medical records. Lab Data I reviewed the patient's lab results. 02/02/24 13:54 02/02/24 13:54 Radiology Impressions Chest X-Ray 02/02/24 13:04 IMPRESSION: 1. No acute finding. Laboratory Results WBC 7.20 10^3/uL (3.29-11.43) 02/02/24 13:54 RBC 5.87 10^6/uL (3.85-5.65) H 02/02/24 13:54 Hgb 17.40 g/dL (11.27-16.99) H 02/02/24 13:54 Hct 51.5 % (37-53) 02/02/24 13:54 MCV 87.7 fl (82-101) 02/02/24 13:54 MCH 29.6 pg (27-33) 02/02/24 13:54 MCHC 33.8 g/dL (30-55) 02/02/24 13:54 RDW 12.5 % (12.1-15.1) 02/02/24 13:54 Plt Count 295 10^3/cmm (157-399) 02/02/24 13:54 MPV 9.4 fL (7.4-10.4) 02/02/24 13:54 Neut % (Auto) 65.1 % 02/02/24 13:54 Lymph % (Auto) 25.1 % 02/02/24 13:54 [place] % (Auto) 6.3 % 02/02/24 13:54 Eos % (Auto) 2.5 % 02/02/24 13:54 Baso % (Auto) 0.6 % 02/02/24 13:54 Neut # (Auto) 4.69 10^3/uL (1.8-7.7) 02/02/24 13:54 Lymph # (Auto) 1.8 10^3/uL (0.8-4.8) 02/02/24 13:54 [place] # (Auto) 0.5 10^3/uL (0.2-0.9) 02/02/24 13:54 Eos # (Auto) 0.2 10^3/uL (0.0-0.8) 02/02/24 13:54 Baso # (Auto) 0.0 10^3/uL (0.0-0.1) 02/02/24 13:54 Nucleated RBC % (auto) 0 % 02/02/24 13:54 Nucleated RBCs # 0.0 /100WBC 02/02/24 13:54 Sodium 140 mmol/L (136-145) 02/02/24 13:54 Potassium 4.4 mmol/L (3.5-5.1) 02/02/24 13:54 Chloride 103 mmol/L (98-107) 02/02/24 13:54 Carbon Dioxide 25 mmol/L (22-29) 02/02/24 13:54 Anion Gap 16.4 (5-19) 02/02/24 13:54 BUN 15 mg/dL (6-20) 02/02/24 13:54 Creatinine 1.2 mg/dL (0.7-1.2) 02/02/24 13:54 GFR Calculation 63.3 mL/min (90-130) L 02/02/24 13:54 Glucose 89 mg/dL (65-115) 02/02/24 13:54 Calculated Osmolality 290 mOsm/kg (285-295) 02/02/24 13:54 Calcium 9.7 mg/dL (8.5-10.5) 02/02/24 13:54 Total Bilirubin 1.2 mg/dL (0.15-1.2) 02/02/24 13:54 AST 48 U/L (0-40) H 02/02/24 13:54 ALT 116 U/L (0-41) H 02/02/24 13:54 Alkaline Phosphatase 114 U/L (40-130) 02/02/24 13:54 Troponin T Baseline < 6 ng/L (0-15) 02/02/24 13:54 Total Protein 7.1 g/dL (6.6-8.7) 02/02/24 13:54 Albumin 4.7 g/dL (3.5-5.2) 02/02/24 13:54 Globulin 2.4 g/dL (1.3-4.6) 02/02/24 13:54 Lipase 33 U/L (13-60) 02/02/24 13:54 All radiology interpretation(s) finalized by discharge Clincial Decision Support The following clinical decision support tools were used to aid in care of the patient HEART Score -> History: Slightly Suspicous, EKG: Normal, Age: 45-64 yrs, Risk Factors: 1 or 2 Risk Factors, Troponin: Baseline Trop <16 ng/L. Resulting HEART Score: 2. Discharge Plan Discharge Patient Disposition: Home Clinical Impression: Chest pain Condition: Stable Prescriptions: No Action ropinirole 0.5 mg tablet 1 mg PO BID tizanidine 4 mg capsule 4 mg PO TID PRN (Reason: Muscle Spasm) fluticasone propionate 50 mcg/actuation spray,suspension 1 spray intranasal DAILY Rx Instructions: administer into each nostril iVizia (PF) 0.5 % dropperette,gel 2 drp ophthalmic (eye) BID carboxymethylcellulose sodium [Refresh Celluvisc] 1 % dropperette,gel 1 drp ophthalmic (eye) BID omega-3 fatty acids 500 mg capsule 500 mg PO DAILY meloxicam 15 mg tablet PO famotidine 20 mg tablet PO allopurinol 100 mg tablet 200 mg PO DAILY Qty: 60 4RF albuterol sulfate [ProAir HFA] 90 mcg/actuation Hfa Aerosol Inhaler 2 puff INHALATION Q4H PRN (Reason: Shortness Of Breath) budesonide-formoterol [Symbicort] 80-4.5 mcg/actuation Hfa Aerosol Inhaler 2 puff INHALATION BID cetirizine 10 mg Tablet 10 mg PO DAILY Saline [place] 1 spray nasal DAILY PRN (Reason: unknown) aspirin 81 mg tablet,chewable 81 mg PO DAILY Qty: 30 0RF Discharge Orders: Discharge ED (Routine); Ordered 02/02/24 Ordered By: Jeanine Garsia Referrals: Barraza,EVELINA GutierrezP [Primary Care Provider] - 4-7 days Discharge Diet: Advance as tolerated Discharge Activity: Resume usual activity Patient Instructions: Chest Pain (ED) Coding Level of Care Code 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
[2024-02-02 15:41] VITALS: BP 126/86; PULSE 68; O2SAT 98
[2024-02-02] MEDS: dexamethasone 10 mg/mL INJ IM (15:43)
[2024-02-02 15:54] VITALS: BP 126/97; PULSE 74; O2SAT 97
== END 2024-02-02 15:55 | disposition home or self-care (01) ==
PROVIDERS: Emergency Provider Emergency Medicine; PCP Nurse Practitioner Family
DX: R07.9 Chest pain, unspecified (principal); Z79.82 Long term (current) use of aspirin; J44.9 Chronic obstructive pulmonary disease, unspecified
CPT/HCPCS: 36415; 71045; 80053; 83690; 84484; 85025; 93005; 96372; 99285; J1100

== ENCOUNTER 2024-06-09 11:32 | Emergency (ER) | payer BC, MEDICAID, SELFPAY ==
[2024-06-09 11:55] VITALS: BP 130/89; PULSE 73; RESP 16; TEMP 36.6; O2SAT 97; BMI 27.3
--- NOTE | 2024-06-09 12:09 | W.ED.MALEGU ---
HPI - Male Genitourinary General: Chief complaint: Urogenital-Male Stated complaint: blood in sperm Time Seen by Provider: 06/09/24 12:08 History of Present Illness: 54 yo m p/w cc of hematospermia. Patient reports for many months he has had a little bit of difficulty urinating. He has to sit down to urinate and put his legs in a certain position. He does not feel the need to urinate in his bladder but more in his urethra. No urethral discharge. No pain with urination. No pain in the perineum or stomach. No weight loss or night sweats. No known problems with the prostate. Patient reports there is no way he has any sexually transmitted infection. He has not felt any masses or lymphadenopathy in the scrotum or groin. No changes to the penis. He has had a hematospermia twice this week. Patient brought in a tissue with dried semen with apparent blood. Patient has not seen any primary care or urology for this. No constitutional symptoms. Denies any immunocompromise, HIV, diabetes, etc. No hematuria or flank pain. Related Data Home Medications ?Medication ?Instructions ?Recorded ?Confirmed albuterol sulfate 90 mcg/actuation 2 puff inhalation Q4H PRN 09/12/19 04/12/23 aerosol inhaler (ProAir HFA) Shortness Of Breath budesonide-formoterol HFA 80 2 puff inhalation BID 09/12/19 04/12/23 mcg-4.5 mcg/actuation aerosol inhaler (Symbicort) cetirizine 10 mg tablet 10 mg PO DAILY 09/19/19 04/12/23 Saline Chester 1 spray nasal DAILY PRN unknown 01/16/20 04/12/23 carboxymethylcellulose sodium 1 % 1 drp ophthalmic (eye) BID 04/28/22 04/12/23 eye gel in a dropperette (Refresh Celluvisc) fluticasone propionate 50 1 spray intranasal DAILY 04/28/22 04/12/23 mcg/actuation nasal spray,suspension povidone (PF) 0.5 % eye gel in a 2 drp ophthalmic (eye) BID 04/28/22 04/12/23 dropperette (iVizia (PF)) ropinirole 0.5 mg tablet 1 mg PO BID 04/28/22 04/12/23 tizanidine 4 mg capsule 4 mg PO TID PRN Muscle Spasm 04/28/22 04/12/23 omega-3 fatty acids 500 mg capsule 500 mg PO DAILY 11/24/22 04/12/23 famotidine 20 mg tablet mg PO 04/12/23 04/12/23 Previous Rx's ?Medication ?Instructions ?Recorded aspirin 81 mg chewable tablet 81 mg PO DAILY #30 tabs 01/16/20 allopurinol 100 mg tablet 200 mg (2 x 100 mg) PO DAILY #60 04/12/23 tabs levofloxacin 500 mg tablet 500 mg PO DAILY 10 days #10 tabs 06/09/24 meloxicam 7.5 mg tablet 7.5 mg PO DAILY 7 days #7 tabs 06/09/24 tamsulosin 0.4 mg capsule (Flomax) 0.4 mg PO DAILY #30 caps 06/09/24 Allergies Allergy/AdvReac Type Severity Reaction Status Date / Time No Known Allergies Allergy Verified 06/09/24 12:06 Review of Systems General: Reports: 10 or more systems reviewed and unremarkable except in HPI and below PFSH ED PFSH: Medical History Asthma COPD (chronic obstructive pulmonary disease) Emphysema lung Hx of hyperlipidemia Social History Smoking and tobacco/nicotine status: never used tobacco/nicotine Physical Exam Const: COMMON NORMALS: no limitations, alert and well nourished EXAM LIMITATIONS: no altered mental status HENMT: COMMON NORMALS: normocephalic and atraumatic HEAD & SCALP: normocephalic and atraumatic MOUTH: no muffled voice Eye: COMMON NORMALS: conjunctivae normal and no scleral icterus CONJUNCTIVA: Yes conjunctivae normal Neck/C-Spine: GENERAL: Yes normal visual inspection and Yes trachea midline Resp: COMMON NORMALS: normal respiratory effort and No use of accessory muscles GI: COMMON NORMALS: Soft to palpation PALPATION: Yes Soft to palpation and No Guarding due to palpation present (GI) : OTHER: Penis normal. No inguinal adenopathy. No hernias. No discharge. No rashes. No wounds. Scrotum normal. Testicles normal to palpation. No tenderness of the scrotum or testicles. No masses of the scrotum or testicle region. Extremity: COMMON NORMALS: normal to inspection Neuro: COMMON NORMALS: moves all extremities, no focal motor deficits and no sensory deficits noted SENSORIUM/ORIENTATION: Yes alert SPEECH: speech normal Psych: COMMON NORMALS: mental status grossly normal, Normal thought process present, cooperative, normal affect and speech normal SPEECH: Yes normal speech THOUGHT PROCESS: Normal thought process present Skin: COMMON NORMALS: no rashes or lesions noted, turgor normal and no jaundice GENERAL SKIN EXAM: no rashes or lesions noted and turgor normal Course Vital Signs: Vital signs: Vital Signs Temperature 97.9 F 06/09/24 11:55 Pulse Rate 73 06/09/24 11:55 Respiratory Rate 16 06/09/24 11:55 Blood Pressure 130/89 06/09/24 11:55 Pulse Oximetry 97 06/09/24 11:55 Oxygen Delivery Me thod Room Air 06/09/24 11:55 MDM - Male Medical Decision Making Differential diagnosis includes inflammatory conditions, idiopathic, prostate cancer, inflammation or infection of the seminal vesicles, seminal vesicle cyst, prostatitis, prostatic telangiectasias or varices, prostatic calculi or cyst, urethral-itis, malignancy, infection such as HIV/TB/CMV/gonorrhea/chlamydia/HSV, other causes of urethritis, etc. Most cases are self-limited within 2 months. We have obtained a urine analysis as well as sent for testing for gonorrhea and chlamydia. Patient denies any immunocompromise. UA often does not show signs of prostatitis or genitourinary infection outside the bladder and urethra. Trial of Levaquin. Patient can be discharged with a trial of Flomax, 7 days of meloxicam, 10 days of levofloxacin 500 mg daily. I have explained to him that he will need to make urology follow-up. No urologist available here so he was referred to [facility] urology and given the address and phone number. He may require PSA testing, transrectal ultrasound, and other workup depending on the urologist discretion. No radiology studies performed this visit Discharge Plan Discharge Patient Disposition: Home Clinical Impression: Hematospermia Condition: Stable Prescriptions: New tamsulosin [Flomax] 0.4 mg capsule 0.4 mg PO DAILY Qty: 30 0RF levofloxacin 500 mg tablet 500 mg PO DAILY 10 Days Qty: 10 0RF meloxicam 7.5 mg tablet 7.5 mg PO DAILY 7 Days Qty: 7 0RF Discontinued meloxicam 15 mg tablet PO No Action ropinirole 0.5 mg tablet 1 mg PO BID tizanidine 4 mg capsule 4 mg PO TID PRN (Reason: Muscle Spasm) fluticasone propionate 50 mcg/actuation spray,suspension 1 spray intranasal DAILY Rx Instructions: administer into each nostril iVizia (PF) 0.5 % dropperette,gel 2 drp ophthalmic (eye) BID carboxymethylcellulose sodium [Refresh Celluvisc] 1 % dropperette,gel 1 drp ophthalmic (eye) BID omega-3 fatty acids 500 mg capsule 500 mg PO DAILY famotidine 20 mg tablet PO allopurinol 100 mg tablet 200 mg PO DAILY Qty: 60 4RF albuterol sulfate [ProAir HFA] 90 mcg/actuation Hfa Aerosol Inhaler 2 puff INHALATION Q4H PRN (Reason: Shortness Of Breath) budesonide-formoterol [Symbicort] 80-4.5 mcg/actuation Hfa Aerosol Inhaler 2 puff INHALATION BID cetirizine 10 mg Tablet 10 mg PO DAILY Saline Chester 1 spray nasal DAILY PRN (Reason: unknown) aspirin 81 mg tablet,chewable 81 mg PO DAILY Qty: 30 0RF Discharge Orders: Discharge ED (Routine); Ordered 06/09/24 Ordered By: Rosalio Aquino Referrals: Brenda Barraza FNP [Primary Care Provider] - Patient Instructions: Pain Management Activity Restrictions/Additional Instructions: 1. Please make a follow-up appointment with [facility] urology in [place]. The address is [address] [place] [id number]. The phone number is [phone] 2. Take levofloxacin 500 mg once daily for 10 days 3. Take meloxicam 7.5 mg daily for 7 days 4. Take Flomax once daily for 30 days The most common causes of blood in the sperm are due to infection or inflammation. Other causes are possible including prostate enlargement, prostate cancer, cysts or stones in the genitourinary tract, atypical infections, and multiple other potential etiologies. This is why it is important to follow-up with urology as you may need a transrectal ultrasound, PSA testing, or other workup that is done outside of the emergency department. Return to the emergency department if you develop abdominal pain, fever, inability to urinate, or other emergency symptoms. Print Language: Maori Coding Level of Care Code ED It Systems Analyst for Jake Kenny
[2024-06-09 13:42] LABS: Bacteria Urine None Seen /hpf; Hyaline Casts Urine 0-4 /lpf; RBC Urine 0-2 /hpf (0-2); Squamous Epithelial Cell Urine 0-5 /hpf (0-5); WBC Urine 0-5 /hpf (0-5)
[2024-06-09 13:43] LABS: Add Urine Microscopic? YES; Bilirubin Urine Neg (Negative); Blood Urine Neg (Negative); Glucose Urine UA Norm (Normal); Ketones Urine Negative (Negative); Leukocyte Esterase Urine Negative (Negative); Nitrate Urine Negative (Negative); Protein Urine Neg (Negative); Specific Gravity, Urine 1.015 (1.005-1.030); Urine Appearance Clear (CLEAR); Urine Color Yellow (Yellow); Urobilinogen Urine Neg (Negative); pH Urine 5 (5-7)
[2024-06-09 15:10] LABS: Chlamydia Trachomatis NOT DETECTED; Neisseria Gonorrhea NOT DETECTED
== END 2024-06-09 13:52 | disposition home or self-care (01) ==
PROVIDERS: Emergency Provider Emergency Medicine; PCP Nurse Practitioner Family
DX: R36.1 Hematospermia (principal); Z79.82 Long term (current) use of aspirin; J44.9 Chronic obstructive pulmonary disease, unspecified; E78.5 Hyperlipidemia, unspecified
CPT/HCPCS: 81001; 87491; 87591; 99283

== ENCOUNTER 2024-10-19 09:51 | Outpatient (CLI) | payer BC, MEDICAID, SELFPAY ==
--- NOTE | 2024-10-19 09:56 | US_ITS ---
WS: [id number] TESTICULAR ULTRASOUND HISTORY: HEMATOSPERMIA COMPARISON: None available. TECHNIQUE: Real-time and color Doppler imaging utilized to perform a testicular ultrasound. Right testicle: 4.1 cm x 2.8 cm x 2.0 cm. Normal size and echogenicity. No mass or torsion. Normal color Doppler is present throughout. Systolic and diastolic velocities are both present. No significant hydrocele. Right epididymis: Normal epididymis with no increased vascularity. Left testicle: 3.9 cm x 2.7 cm x 2.0 cm. Normal size and echogenicity. No mass or torsion. Normal color Doppler is present throughout. Systolic and diastolic velocities are both present. No significant hydrocele. Left epididymis: Normal epididymis with no increased vascularity. US/US scrotum [id number] IMPRESSION: NORMAL TESTICULAR ULTRASOUND.
== END 2024-10-19 09:52 | disposition home or self-care (01) ==
LOC: RAD 09:52
PROVIDERS: PCP Nurse Practitioner Family; Visit Provider Nurse Practitioner Family
DX: R36.1 Hematospermia (principal)
CPT/HCPCS: 76870

== ENCOUNTER 2025-01-05 12:27 | Outpatient (CLI) | payer BC, MEDICAID, SELFPAY ==
--- NOTE | 2025-01-05 12:34 | XR_ITS ---
WS: [id number] Right shoulder, 3 views, 01/05/2025 Clinical Data: PAIN IN R SHOULDER Comparison: None. Findings: No fractures or dislocations are seen. The AC joint is normal. The adjacent right clavicle, right scapula and ribs are normal. The soft tissues are unremarkable. The greater tuberosity shows mild sclerosis and irregularity. 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
== END 2025-01-05 12:28 | disposition home or self-care (01) ==
LOC: RAD 12:30
PROVIDERS: PCP Nurse Practitioner Family; Visit Provider Nurse Practitioner Family
DX: M25.511 Pain in right shoulder (principal); M85.811 Other specified disorders of bone density and structure, right shoulder
CPT/HCPCS: 73030